=== PATIENT | female | born 1980 | race Caucasian/White ===

== ENCOUNTER 2018-11-09 15:07 | Outpatient (REF) | payer MEDICAID, SELFPAY ==
[2018-11-09 22:06] LABS: Bilirubin Negative (Negative); Blood Negative (Negative); Clarity Clear; Glucose Negative (Negative); Ketones Negative (Negative); Leukocyte Esterase Negative (Negative); Nitrite Negative (Negative); Urobilinogen 0.2 EU/dL (Up TO 0.2)
[2018-11-09 22:48] LABS: Epithelial Cells Many HPF (Negative); RBC 0-2 (0-2)
[2018-11-09 22:49] LABS: Bacteria Rare HPF (Negative); C & S Indicated? No/Sq. Contamination; Casts Negative LPF (Negative); Crystals Negative HPF (Negative); Mucus Negative (Negative); Other Cells Rare Renal (Negative)
== END 2018-11-09 15:27 ==
LOC: NCHCN 15:07
PROVIDERS: PCP Nurse Practitioner Family; Visit Provider Registered Nurse
DX: R10.30 Lower abdominal pain, unspecified (principal); R82.90 Unspecified abnormal findings in urine
CPT/HCPCS: 81003; 81015

== ENCOUNTER 2018-11-21 11:21 | Outpatient (REF) | payer MEDICAID, SELFPAY ==
[2018-11-21 16:56] LABS: ALT 61 U/L (12-78); AST 30 U/L (15-37); Alkaline Phosphatase 109 U/L (46-116); Amylase 90 U/L (25-115); Anion Gap 7.2 mmol/L (3-11); BUN 13 mg/dL (7-18); Bilirubin, Total 0.3 mg/dL (0.2-1.0); CO2 28.8 mmol/L (21.0-32.0); CREATININE 0.91 mg/dL (0.55-1.02); Calcium 9.2 mg/dL (8.5-10.1); Chloride 105 mmol/L (98-107); Glucose 81 mg/dL (70-100); Lipase 216 U/L (73-393); Potassium 4.3 mmol/L (3.5-5.1); Sodium 141 mmol/L (136-145); Total Protein 7.4 g/dL (6.4-8.2)
== END 2018-11-21 11:41 ==
LOC: NCHCN 11:21
PROVIDERS: PCP Nurse Practitioner Family; Visit Provider Nurse Practitioner Family
DX: R10.11 Right upper quadrant pain (principal); F41.8 Other specified anxiety disorders; Z87.42 Personal history of other diseases of the female genital tract
CPT/HCPCS: 80053; 83690; 82150

== ENCOUNTER 2020-10-07 15:23 | Outpatient (REF) | payer MEDICAID, SELFPAY ==
[2020-10-12 07:23] LABS: Patient Race White; SARS-CoV-2 RNA Undetected (Undetected); SARS-CoV-2 Specimen Source Nasal
== END 2020-10-07 15:43 ==
LOC: NCHCN 15:23
PROVIDERS: PCP Nurse Practitioner Family; Visit Provider Nurse Practitioner Family
DX: G44.89 Other headache syndrome (principal); R53.83 Other fatigue
CPT/HCPCS: U0003

== ENCOUNTER 2020-10-31 19:53 | Outpatient (REF) | payer MEDICAID, SELFPAY ==
[2020-11-02 17:08] LABS: COVID-19 RT-PCR Result NEGATIVE (Negative)
== END 2020-10-31 20:13 ==
LOC: NCHCN 19:53
PROVIDERS: PCP Nurse Practitioner Family; Visit Provider Nurse Practitioner Family
DX: R05 Cough (principal)
CPT/HCPCS: U0003

== ENCOUNTER 2022-12-21 16:31 | Outpatient (REF) | payer MEDICAID, SELFPAY ==
[2022-12-21 20:54] LABS: HCT 41.9 % (36.0-46.0); HGB 14.4 g/dL (11.2-15.7); MCH 31.6 pg (27.0-33.0); MCHC 34.4 % (32.0-36.0); MCV 92 fL (80-95); MPV 9.3 fL (8.0-11.0); Platelet Count 316 10^3/uL (130-400); RBC 4.56 10^6/uL (3.93-5.22); RDW 11.9 % (11.7-14.6); RDW-SD 40.4 fL; WBC 11.71 10^3/uL (4.4-10.8)
[2022-12-21 21:06] LABS: ALT 88 U/L (14-59); AST 40 U/L (15-37); Albumin 4.5 g/dL (3.4-5.0); Alkaline Phosphatase 91 U/L (46-116); Anion Gap 8.3 mmol/L (3-11); BUN 17 mg/dL (7-18); Bilirubin, Total 0.4 mg/dL (0.2-1.0); CO2 27.7 mmol/L (21.0-32.0); CREATININE 0.9 mg/dL (0.55-1.02); Calcium 9.8 mg/dL (8.5-10.1); Chloride 102 mmol/L (98-107); Estimated GFR 82.88 (mL/min/1.73m2); Glucose 95 mg/dL (74-106); Lipase 153 U/L (73-393); Potassium 4.1 mmol/L (3.5-5.1); Sodium 138 mmol/L (136-145); Total Protein 7.9 g/dL (6.4-8.2)
== END 2022-12-21 16:32 | disposition home or self-care (01) ==
LOC: NCHCN 16:31
PROVIDERS: PCP Nurse Practitioner Family; Visit Provider Nurse Practitioner Family
DX: R10.11 Right upper quadrant pain (principal); Z13.1 Encounter for screening for diabetes mellitus
CPT/HCPCS: 80053; 83690; 85027; 83036

== ENCOUNTER 2023-01-11 12:12 | Outpatient (REF) | payer MEDICAID, SELFPAY ==
[2023-01-11 16:14] LABS: Iron 98 ug/dL (50-170); Total Iron Binding Capacity 293 ug/dL (250-450); Transferrin Sat 33 % (15-50)
[2023-01-11 16:27] LABS: ALT 58 U/L (14-59); AST 29 U/L (15-37); Albumin 4.6 g/dL (3.4-5.0); Alkaline Phosphatase 82 U/L (46-116); Bilirubin, Direct 0.1 mg/dL (0.0-0.2); Bilirubin, Total 0.4 mg/dL (0.2-1.0); TSH 1.64 uIU/mL (0.36-3.74); Total Protein 7.6 g/dL (6.4-8.2)
[2023-01-11 16:53] LABS: Calculated LDL 126 mg/dL (<100); Cholesterol 203 mg/dL (<200); Ferritin 104 ng/mL (8-252); HDL Cholesterol 52 mg/dL (40-60); Triglyceride 127 mg/dL (<150)
[2023-01-12 16:36] LABS: Hepatitis A Antibody IgM Negative (Negative); Hepatitis B Core Antibody Negative (Negative); Hepatitis B surface Ag Negative (Negative); Hepatitis C Ab w Rflx HCV PCR Negative (Negative)
== END 2023-01-11 12:13 | disposition home or self-care (01) ==
LOC: NCHCN 12:12
PROVIDERS: PCP Nurse Practitioner Family; Visit Provider Nurse Practitioner Family
DX: R10.11 Right upper quadrant pain (principal); R74.8 Abnormal levels of other serum enzymes; Z20.9 Contact with and (suspected) exposure to unspecified communicable disease
CPT/HCPCS: 80061; 80076; 86704; 86709; 86803; 87340; 82728; 83540; 83550; 84443

== ENCOUNTER 2023-11-27 11:38 | Outpatient (REF) | payer MEDICAID, SELFPAY | END 2023-11-27 11:39 | disposition home or self-care (01) | LOC: LBN 11:38 | PROVIDERS: PCP Nurse Practitioner Family; Visit Provider Nurse Practitioner Family | DX: J02.9 Acute pharyngitis, unspecified (principal); Z20.818 Contact with and (suspected) exposure to other bacterial communicable diseases | CPT/HCPCS: 87070 ==

== ENCOUNTER 2024-03-03 09:51 | Emergency (ER) | payer MEDICAID, SELFPAY ==
[2024-03-03 09:57] VITALS: BP 170/78; PULSE 91; RESP 18; TEMP 36.2; O2SAT 100
--- NOTE | 2024-03-03 10:45 | DI.RAD_ITS ---
Exam(s) XR WRIST LT COMPLETE EXAM: XR WRIST LT COMPLETE CLINICAL HISTORY: LEFT WRIST PAIN. TECHNIQUE: 2D digital imaging was performed. COMPARISON: No exams were available for comparison FINDINGS: 3 views No evidence of fracture or dislocation nor significant ulnar variance. Scaphoid and scapholunate dis tance appear unremarkable. Bone density normal. No osseous lesions. No degenerative changes. IMPRESSION: No significant osseous findings in the wrist. DATA REPOSITORY: RADIATION DOSE DELIVERED:
--- NOTE | 2024-03-03 10:45 | DI.RAD_ITS ---
Exam(s) XR FOREARM LT EXAM: XR FOREARM LT CLINICAL HISTORY: CONTUSION. TECHNIQUE: 2D digital imaging was performed. COMPARISON: No exams were available for comparison FINDINGS: Two views. No evidence of fracture. No radiopaque foreign body. Bone density normal. No osseous lesions. IMPRESSION: No acute osseous findings in the forearm bones. DATA REPOSITORY: RADIATION DOSE DELIVERED:
--- NOTE | 2024-03-03 10:45 | DI.RAD_ITS ---
Exam(s) XR HAND LT COMPLETE EXAM: XR HAND LT COMPLETE CLINICAL HISTORY: LEFT HAND CONTUSION. TECHNIQUE: 2D digital imaging was performed. COMPARISON: No exams were available for comparison FINDINGS: 3 views No evidence of fracture or dislocation nor abnormal soft tissue densities. No osseous lesions. No e rosions. No radiopaque foreign bodies. IMPRESSION: No acute osseous findings in the hand. DATA REPOSITORY: RADIATION DOSE DELIVERED:
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
[2024-03-03 12:21] VITALS: BP 124/80; PULSE 78; RESP 18; TEMP 36.8; O2SAT 99
--- NOTE | 2024-03-06 11:02 | NUR.NOTE ---
Accessed chart to determine diagnosis for [facility] billing paperwork. Nursing Note:
== END 2024-03-03 12:25 | disposition home or self-care (01) ==
PROVIDERS: Emergency Provider Emergency Medicine Emergency Medical Services; PCP Nurse Practitioner Family
DX: S50.12XA Contusion of left forearm, initial encounter (principal); W23.0XXA Caught, crushed, jammed, or pinched between moving objects, initial encounter; Y93.E9 Activity, other interior property and clothing maintenance; Y92.018 Other place in single-family (private) house as the place of occurrence of the external cause
CPT/HCPCS: 99283; 73090; 73110; 73130

== ENCOUNTER 2025-09-04 14:55 | Outpatient (REF) | payer MEDICAID, SELFPAY ==
[2025-09-04 15:37] LABS: HCT 39.7 % (36.0-46.0); HGB 13.4 g/dL (11.2-15.7); MCH 31.5 pg (27.0-33.0); MCHC 33.8 % (32.0-36.0); MCV 93 fL (80-95); MPV 9.1 fL (8.0-11.0); Platelet Count 280 10^3/uL (130-400); RBC 4.26 10^6/uL (3.93-5.22); RDW 12.1 % (11.7-14.6); RDW-SD 41.3 fL; WBC 8.08 10^3/uL (4.4-10.8)
[2025-09-04 16:02] LABS: ALT 146 U/L (14-59); AST 68 U/L (15-37); Albumin 3.9 g/dL (3.4-5.0); Alkaline Phosphatase 112 U/L (46-116); Anion Gap 9.2 mmol/L (3-11); BUN 9 mg/dL (7-18); Bilirubin, Total 0.3 mg/dL (0.2-1.0); CO2 25.8 mmol/L (21.0-32.0); Calcium 9.0 mg/dL (8.5-10.1); Chloride 104 mmol/L (98-107); Estimated GFR 94.28 (mL/min/1.73m2); Glucose 92 mg/dL (74-106); Potassium 4.3 mmol/L (3.5-5.1); Sodium 139 mmol/L (136-145); TSH 2.36 uIU/mL (0.36-3.74); Total Protein 7.4 g/dL (6.4-8.2)
[2025-09-04 16:16] LABS: Hemoglobin A1C 4.7 % (<5.7)
[2025-09-04 17:53] LABS: Calculated LDL 156 mg/dL (<100); Cholesterol 248 mg/dL (<200); HDL Cholesterol 70 mg/dL (>or=50); Triglyceride 113 mg/dL (<150)
== END 2025-09-04 14:56 | disposition home or self-care (01) ==
LOC: NCHCN 14:55
PROVIDERS: PCP Nurse Practitioner Family; Visit Provider Nurse Practitioner Family
DX: Z00.00 Encounter for general adult medical examination without abnormal findings (principal)
CPT/HCPCS: 80053; 80061; 85027; 83036; 84443